=== PATIENT | female | born 1990 | race American Indian/Alaskan Native ===

== ENCOUNTER 2017-11-18 19:30 | Outpatient (CLI) | payer MEDICAID, OTHER ==
[2017-11-18 20:25] VITALS: BP 118/66
--- NOTE | 2017-11-18 20:55 | Event Note ---
Date: 11/18/17 Received call thru answering service lawson complained of excessive discharge and abdominal pain. States she feels like she has to have a BM but has clear mucus coming from her rectum and vagina. She was instructed to go to [facility] for evaluation. She presented to [facility] c/o right flank pain, cramps and clear discharge. On exam, negative pool,negative fern. Wet prep +BV. Cervix closed, FHT's 150's, no UC's. (R) moderarte hydronephrosis Bacterial vaginosis Allow home RTE W Thursday, make an appointment jose for care
[2017-11-18 21:21] LABS: Bacteria,Urine 1+ /HPF (Negative); Bilirubin,Urine NEG (Negative); Blood,Urine NEG (Negative); Color,Urine Yellow (Yellow); Mucus,Urine FEW /HPF; Protein,Urine <15 mg/dL mg/dL (Negative); Urobilinogen,Urine < 2.0 mg/dL (<2.0)
--- NOTE | 2017-11-18 21:54 | Discharge Summary ---
Providers - Providers Date of discharge: 11/18/17 Attending physician: KAROL WARREN Primary care physician: KAROL WARREN Hospitalization Condition at discharge: Good Disposition: DC-01 TO HOME OR SELFCARE Plan - Discharge Medications Prescriptions: metroNIDAZOLE [Metronidazole] 250 mg PO TID #21 tablet - Provider Discharge Summary Activity: other (No sex) Additional instructions: [] Smoking cessation referral if applicable(refer to patient education folder for contact #) [] Refer to [facility]'s [facility] Booklet Call your doctor immediately for: * Fever > 100.5 * Heavy vaginal bleeding ( >1 pad per hour) * Severe persistent headache * Shortness of breath * Reddened, hot, painful area to leg or breast * Drainage or odor from incision. * Keep incision clean and dry at all times and follow doctor's instructions regarding bathing/showering call [facility] tomorrow to make an appointment for care - Follow up plan Follow up: LIZETT MEEK MD [Staff Physician] - 7 Days (or jose) KAROL WARREN MD [Primary Care Provider] - (Call office tomorrow to make an appointment. ) Forms: Work/School Release Form
[2017-11-18] MEDS ORDERED: LACTATED RINGERS 1,000 ML IV ONE (22:00)
--- NOTE | 2017-11-18 22:45 | Ultrasound Report ---
FINAL REPORT PROCEDURE: US RENAL BILAT TECHNIQUE: Real-time sonography in multiple planes of the kidneys, ureters and urinary bladder was performed with image documentation. CPT 46077 HISTORY: [id number] weeksm, eval for kidney disease COMPARISON: No prior studies are available for comparison. FINDINGS: RIGHT kidney: There is moderate degree right hydronephrosis.. Length: 11 x 6 x 5 cm. LEFT kidney: Normal echotexture. No focal renal mass, calculus, or hydronephrosis. Length: 12 x 5 x 5cm. Bladder: Partially filled with normal outlines. IMPRESSION: Moderate degree right hydronephrosis. This may be physiologic secondary to . However right ureteral obstruction cannot be excluded..
== END 2017-11-18 22:00 | disposition home or self-care (01) ==
LOC: TRG 19:30
PROVIDERS: ATTEND Obstetrics & Gynecology
DX: O47.02 False labor before 37 completed weeks of gestation, second trimester (principal); Z3A.21 21 weeks gestation of pregnancy
CPT/HCPCS: 76770; 81001

== ENCOUNTER 2017-12-29 20:54 | Outpatient (CLI) | payer BC, MEDICAID, OTHER ==
[2017-12-29 21:11] VITALS: BP 120/73
[2017-12-29] MEDS ORDERED: LACTATED RINGERS 1,000 ML IV ONE (22:15)
[2017-12-29] MEDS ORDERED: ZOFRAN IV ONE (22:16)
[2017-12-29 22:54] LABS: Bacteria,Urine 1+ /HPF (Negative); Bilirubin,Urine NEG (Negative); Blood,Urine NEG (Negative); Color,Urine Yellow (Yellow); Mucus,Urine 3+ /HPF; Urobilinogen,Urine < 2.0 mg/dL (<2.0)
== END 2017-12-30 00:17 | disposition home or self-care (01) ==
LOC: TRG 20:54
PROVIDERS: ATTEND Obstetrics & Gynecology
DX: O47.02 False labor before 37 completed weeks of gestation, second trimester (principal); Z3A.27 27 weeks gestation of pregnancy
CPT/HCPCS: 59025; 81001; 96360; J2405; J7120

== ENCOUNTER 2018-03-03 16:33 | Outpatient (CLI) | payer MEDICAID ==
[2018-03-03] MEDS ORDERED: LACTATED RINGERS 500 ML IV ONE (16:51)
[2018-03-03 17:09] LABS: Hematocrit 32.7 % (30.3-42.9); Mean Corpuscular HGB Conc 34 % (30-34); Mean Corpuscular Hemoglobin 28 pg (28-32); Mean Corpuscular Volume 83 fl (79-97); Platelet Count 252 K/mm3 (140-440); Red Blood Count 3.97 M/mm3 (3.65-5.03); Red Cell Distribution Width 13.3 % (13.2-15.2)
[2018-03-03 17:34] LABS: Alanine Aminotransferase 8 units/L (7-56); Uric Acid 3.2 mg/dL (3.5-7.6)
[2018-03-03 18:02] LABS: Bilirubin,Urine NEG (Negative); Blood,Urine NEG (Negative); Color,Urine Yellow (Yellow); Mucus,Urine FEW /HPF; Protein,Urine <15 mg/dL mg/dL (Negative); Urobilinogen,Urine < 2.0 mg/dL (<2.0)
[2018-03-03 18:04] LABS: RBC,Urine < 1.0 /HPF (0.0-6.0)
[2018-03-03 19:04] VITALS: BP 125/77
[2018-03-03] MEDS ORDERED: TYLENOL PO ONE (19:24)
[2018-03-03] MEDS ORDERED: TYLENOL ONE (19:28)
== END 2018-03-03 20:00 | disposition home or self-care (01) ==
LOC: TRG 16:33
PROVIDERS: ATTEND Obstetrics & Gynecology
DX: O47.03 False labor before 37 completed weeks of gestation, third trimester (principal); Z3A.36 36 weeks gestation of pregnancy
CPT/HCPCS: 36415; 59025; 81001; 82565; 83615; 84450; 84460; 84550; 85027; 96360; J7120

== ENCOUNTER 2018-03-06 00:37 | Outpatient (CLI) | payer MEDICAID ==
[2018-03-06 00:54] VITALS: BP 114/68
[2018-03-06] MEDS ORDERED: LACTATED RINGERS 1,000 ML ONE (02:02)
--- NOTE | 2018-03-06 03:11 | Ultrasound Report ---
FINAL REPORT EXAM: US OB LIMITED HISTORY: well being TECHNIQUE: Real-time sonography was performed of the gravid uterus for amniotic fluid index and images are submitted for interpretation. PRIORS: None. FINDINGS: There is a single fetus in the uterus in a cephalic presentation. The placenta is posterior. The amniotic fluid index is normal at 13.3 cm. The heart is beating at a rate of 150 beats per minute. IMPRESSION: Normal amniotic fluid index
[2018-03-06 03:23] LABS: Amorphous Crystals,Urine 1+; Bacteria,Urine 1+ /HPF (Negative); Bilirubin,Urine NEG (Negative); Blood,Urine NEG (Negative); Color,Urine Yellow (Yellow); Mucus,Urine FEW /HPF; Protein,Urine <15 mg/dL mg/dL (Negative); Urobilinogen,Urine < 2.0 mg/dL (<2.0)
--- NOTE | 2018-03-06 03:25 | Ultrasound Report ---
FINAL REPORT EXAM: US OB BPP WO NON-STRESS HISTORY: well being TECHNIQUE: Real-time sonography was performed of the gravid uterus for biophysical profile and images are submitted for interpretation. PRIORS: None. FINDINGS: Biophysical profile: Breathin Movement: 2 Tone: 2 Fluid volume: 2 IMPRESSION: Normal biophysical profile, 01/20
== END 2018-03-06 03:43 | disposition home or self-care (01) ==
LOC: TRG 00:37
PROVIDERS: ATTEND Obstetrics & Gynecology
DX: O47.03 False labor before 37 completed weeks of gestation, third trimester (principal); Z3A.36 36 weeks gestation of pregnancy
CPT/HCPCS: 59025; 76815; 76819; 81001; 96360; J7120

== ENCOUNTER 2018-03-11 18:32 | Outpatient (CLI) | payer MEDICAID ==
[2018-03-11 22:11] VITALS: BP 114/71
[2018-03-12] MEDS ORDERED: VISTARIL PO ONE (00:27)
[2018-03-12] MEDS ORDERED: LACTATED RINGERS 1,000 ML ONE (00:50)
== END 2018-03-12 00:40 | disposition home or self-care (01) ==
LOC: TRG 18:32
PROVIDERS: ATTEND Obstetrics & Gynecology
DX: O47.03 False labor before 37 completed weeks of gestation, third trimester (principal); Z3A.37 37 weeks gestation of pregnancy
CPT/HCPCS: 59025; J7120; Q0177

== ENCOUNTER 2018-03-15 00:31 | Outpatient (CLI) | payer MEDICAID ==
[2018-03-15 01:00] VITALS: BP 111/72
== END 2018-03-15 02:22 | disposition home or self-care (01) ==
LOC: TRG 00:31
PROVIDERS: ATTEND Obstetrics & Gynecology
DX: O47.1 False labor at or after 37 completed weeks of gestation (principal); Z3A.38 38 weeks gestation of pregnancy
CPT/HCPCS: 59025

== ENCOUNTER 2018-03-18 18:40 | Inpatient (IN) | payer MEDICAID ==
[2018-03-18] MEDS ORDERED: MORPHINE IM ONE (21:21)
[2018-03-18] MEDS ORDERED: MINERAL OIL PO PRN (21:37)
[2018-03-18] MEDS ORDERED: XYLOCAINE 2% INFILTRATI ONE (21:37)
[2018-03-18] MEDS ORDERED: ZOFRAN IV PRN (21:37)
[2018-03-18] MEDS ORDERED: BRETHINE SUB-Q PRN (21:37)
[2018-03-18] MEDS ORDERED: LACTATED RINGERS 2,000 ML ONE (21:43)
--- NOTE | 2018-03-18 21:48 | History and Physical Report ---
History of Present Illness Date of examination: 03/18/18 (active labor) History of present illness: EDC Confirmation: 03/26/2018 Gestational Age: 9 6/7 weeks Past History : 3 Term Births: 2 Premature Births: 0 Living Children: 2 Para: 2 Aborta: 0 Elect. Ab: 0 Spont. 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 Infection History Hx of STD: none Varicella/Chicken Pox Status: Previous Disease Genetic History Congenital Heart Defect: Mom: no Dad: no Ish Disease: Mom: no Dad: no Thalassemia Mom: no Dad: no Neural Tube Defect Mom: no Dad: no Down's Syndrome Mom: no Dad: no Tal-Sachs Mom: no Dad: no Sickle Cell Disease/Trait Mom: no Dad: no Hemophilia Mom: no Dad: no Muscular Dystrophy Mom: no Dad: no Cystic Fibrosis Mom: no Dad: no Jeanette Chorea Mom: no Dad: no Mental Retardation Mom: no Dad: no Fragile X Mom: no Dad: no Other Genetic/Chromosomal Disorder Mom: no Dad: no Child w/other defect Mom: no Dad: no Enviromental Exposures Xray Exposure: no Medication, drug, or alcohol use since LMP: no Chemical/Other Exposure: no Exposure to Cat Liter: no Hx of Parvovirus (Fifth Disease): no Occupational Exposure to Children: none FALSECurrent Allergies: No known allergies Past History - Obstetrical History Expected Date of Delivery: 03/26/18 Actual Gestation: 39 Week(s) 0 Day(s) : 3 Para: 2 Hx # Term Pregnancies: 2 Number of Living Children: 2 Medications and Allergies Allergies Allergy/AdvReac Type Severity Reaction Status Date / Time No Known Allergies Allergy Verified 09/06/15 13:32 Home Medications Medication Instructions Recorded Confirmed Last Taken Type No Known Home Medications [No 03/11/18 03/11/18 Unknown History Reported Home Medications] Active Meds: Active Medications Ephedrine Sulfate (Ephedrine Sulfate) 10 mg IV Q2M PRN PRN Reason: Hypotension Fentanyl (Sublimaze) 100 mcg IV Q2H PRN PRN Reason: Labor Pain Lactated Ringer's (Lactated Ringers) 1,000 mls @ 125 mls/hr IV DIRECT STEPHEN Oxytocin/Sodium Chloride (Pitocin/Ns 20 Unit/1000ml Drip) 20 units in 1,000 mls @ 125 mls/hr IV DIRECT STEPHEN Oxytocin/Sodium Chloride (Pitocin/Ns 30 Unit/500ml) 30 units in 500 mls @ 4 mls /hr IV Q30MIN STEPHEN; Protocol Lidocaine (Xylocaine 2%) 20 ml INFILTRATI ONCE ONE Stop: 03/18/18 21:38 Mineral Oil (Mineral Oil) 30 ml PO QHS PRN PRN Reason: Constipation Ondansetron HCl (Zofran) 4 mg IV Q8H PRN PRN Reason: Nausea And Vomiting Terbutaline Sulfate (Brethine) 0.25 mg SUB-Q ONCE PRN PRN Reason: Hyperstimulation/Hypertonicity - Vital Signs Vital signs: Vital Signs Pulse BP 86 119/79 03/18/18 19:09 03/18/18 19:09 Temp Pulse Resp BP Pulse Ox 84 114/70 03/18/18 19:24 03/18/18 19:24 - Physical Exam Breasts: Positive: deferred Cardiovascular: Regular rate, Normal S1, Normal S2 Lungs: Positive: Normal air movement Abdomen: Positive: normal appearance, soft, normal bowel sounds. Negative: distention, tenderness Genitourinary (Female): Positive: normal external genitalia Vulva: both: normal Vagina: Positive: normal moisture. Negative: discharge Cervix: Negative: lesion, discharge Uterus: Positive: normal size, normal contour Adnexa: both: normal Anus/Rectum: Positive: normal perianal skin, heme negative. Negative: rectal mass, hemorrhoids Extremities: Positive: normal Deep Tendon Reflex Grade: Normal +2 - Obstetrical FHR: category 1 Uterine Contraction Monitor Mode: External Cervical Dilatation: 5 (BBOW) Cervical Effacement Percentage: 90 station: -2 Uterine Contraction Pattern: Regular Uterine Tone Measurement Phase: Resting Uterine Contraction Intensity: Moderate Results Result Diagrams: 03/18/18 19:30 All other labs normal. Strep Gp B KELLIE Negative HBsAg Screen Negative Negative *1 RPR Non Reactive Non Reactive *2 Rubella Antibodies, IgG [L] 0.90 index Immune >0.99 *3 A second sample should be collected and tested no less than 2-4 weeks. Non-immune <0.90 Equivocal 0.90 - 0.99 Immune >0.99 ABO Grouping O *4 Rh Factor Positive *5 Please note: Prior records for this patient's ABO / Rh type are not available for additional verification. Antibody Screen Negative Negative *6 WBC 5.2 x10E3/uL 3.4-10.8 *7 RBC 4.51 x10E6/uL 3.77-5.28 *8 Hemoglobin 12.1 g/dL 11.1-15.9 *9 Hematocrit 36.1 % 34.0-46.6 *10 MCV 80 fL 79-97 *11 MCH 26.8 pg 26.6-33.0 *12 MCHC 33.5 g/dL 31.5-35.7 *13 RDW 14.4 % 12.3-15.4 *14 Platelets 323 x10E3/uL 150-379 *15 Neutrophils 60 % Not Estab. *16 Lymphs 32 % Not Estab. *17 Monocytes 6 % Not Estab. *18 Eos 2 % Not Estab. *19 Basos 0 % Not Estab. *20 ! Immature Cells <No Reported Value> *21 Neutrophils (Absolute) 3.1 x10E3/uL 1.4-7.0 *22 Lymphs (Absolute) 1.6 x10E3/uL 0.7-3.1 *23 Monocytes(Absolute) 0.3 x10E3/uL 0.1-0.9 *24 Eos (Absolute) 0.1 x10E3/uL 0.0-0.4 *25 Baso (Absolute) 0.0 x10E3/uL 0.0-0.2 *26 ! Immature Granulocytes 0 % Not Estab. *27 ! Immature Grans (Abs) 0.0 x10E3/uL 0.0-0.1 *28 ! NRBC <No Reported Value> *29 Hematology Comments: <No Reported Value> *30 Tests: (2) Panel 260939 ([id number]) HIV Screen 4th Generation wRfx Non Reactive Non Reactive *31 Tests: (3) HCV Ab w/Rflx to Verification ([id number]) ! HCV Ab <0.1 s/co ratio 0.0-0.9 *32 Tests: (4) Comment: (342003) ! Comment: SPRCS *33 Non reactive HCV antibody screen is consistent with no HCV infection, unless recent infection is suspected or other evidence exists to indicate HCV infection. Tests: (5) Urine Culture, Routine (552050) Urine Culture, Routine Final report *34 Tests: (6) Result ([id number]) ! Result 1 No growth *35 Assessment and Plan 28yo @ 38 weeks in active labor GBS negative Orders in EMR Anticipate delivery
[2018-03-18] MEDS ORDERED: PITOCin/NS 30 UNIT/500ML 30 UNITS/500 ML BAG IV SCH (22:00)
[2018-03-18] MEDS ORDERED: LACTATED RINGERS 1,000 ML IV SCH (22:00)
[2018-03-18] MEDS ORDERED: PITOCin/NS 20 UNIT/1000ML DRIP 20 UNITS/1,000 ML BAG IV SCH (22:00)
[2018-03-18 22:01] LABS: Hematocrit 33.6 % (30.3-42.9); Hemoglobin 11.7 gm/dl (10.1-14.3); Mean Corpuscular HGB Conc 35 % (30-34); Mean Corpuscular Hemoglobin 31 pg (28-32); Mean Corpuscular Volume 89 fl (79-97); Platelet Count 254 K/mm3 (140-440); Red Blood Count 3.77 M/mm3 (3.65-5.03); Red Cell Distribution Width 13.6 % (13.2-15.2)
[2018-03-18] MEDS: SUBLIMAZE IV PRN (22:05)
[2018-03-18] MEDS ORDERED: NARCAN 2 MG/2 ML IV PRN (23:29)
--- NOTE | 2018-03-18 23:31 | Anesthesia Consultation ---
Anesthesia Consult and Med Hx Date of service: 03/18/18 - Airway Anesthetic Teeth Evaluation: Good ROM Head & Neck: Adequate Mental/Hyoid Distance: Adequate Mallampati Class: Class II Intubation Access Assessment: Possibly Difficult - Pulmonary Exam CTA: Yes - Cardiac Exam Cardiac Exam: RRR - Pre-Operative Health Status ASA Pre-Surgery Classification: ASA2 Proposed Anesthetic Plan: Epidural, Spinal - Pulmonary Hx Smoking: No Hx Asthma: No - Cardiovascular System Hx Hypertension: No - Central Nervous System Hx Neuromuscular Disorder: No Hx Seizures: No CVA: No - Gastrointestinal Hx Gastroesophageal Reflux Disease: Yes - Endocrine Hx Renal Disease: No Hx Hypothyroidism: No Hx Hyperthyroidism: No - Other Systems Hx Obesity: Yes
[2018-03-18] MEDS ORDERED: PEPCID IV ONE (23:33)
[2018-03-18] MEDS ORDERED: fentaNYL-BUPIV 2 MCG/ML-0.125% 200 MCG/100 ML BAG EPIDURAL SCH (23:45)
[2018-03-19] MEDS: SUBLIMAZE IV PRN (00:50)
--- NOTE | 2018-03-19 01:16 | Procedure Note ---
OB Delivery Note - Delivery Date of Delivery: 03/19/18 Vocational Rehabilitation Consultant: DILIP POTTS Estimated blood loss: 300cc - Vaginal Delivery presentation: vertex Delivery position: OA Delivery monitor: external uterine, internal FHT Route of delivery: Delivery placenta: spontaneous Delivery cord: 3 umbilical vessels Episiotomy: none Delivery laceration: none Anesthesia: epidural Delivery comments: live born female over intact perineum Baby to mom's abdomen skin to skin Cord blood obtained Placenta and membrane delivered complete and intact, 3 vessel cord. Pit IVFs 8/9, EBL 300, Wgt 6-13 Mom and baby remain LDR stable - Infant A at 1 minute: 8 at 5 minutes: 9 Gender: Female (wgt 6-13)
[2018-03-19] MEDS ORDERED: LANSINOH TP PRN (01:19)
[2018-03-19] MEDS ORDERED: TUCKS PAD TP PRN (01:19)
[2018-03-19] MEDS ORDERED: BENADRYL PO PRN (01:19)
[2018-03-19] MEDS ORDERED: MILK OF MAGNESIA PO PRN (01:19)
[2018-03-19] MEDS ORDERED: TYLENOL PO PRN (01:19)
[2018-03-19] MEDS ORDERED: DULCOLAX PR PRN (01:19)
[2018-03-19] MEDS ORDERED: PHENERGAN PO PRN (01:19)
[2018-03-19] MEDS: MOTRIN PO SCH ×3 (01:56→16:03)
[2018-03-19] MEDS ORDERED: SODIUM CHLORIDE FLUSH SYRINGE 10 ML IV NR (02:00)
[2018-03-19] MEDS: NORCO 5/325 PO PRN ×3 (03:11→21:17)
[2018-03-19] MEDS ORDERED: PEPCID IV SCH (10:00)
[2018-03-19] MEDS ORDERED: PRENATAL VITAMIN PO SCH (10:00)
[2018-03-19] MEDS: COLACE PO SCH ×2 (10:17→21:17)
[2018-03-19 14:19] LABS: Hematocrit 30.9 % (30.3-42.9); Hemoglobin 11.2 gm/dl (10.1-14.3)
[2018-03-20] MEDS: NORCO 5/325 PO PRN (04:34)
[2018-03-20] MEDS: MOTRIN PO SCH (04:35)
[2018-03-20] MEDS ORDERED: M-M-R II VACCINE SUB-Q ONE (06:00)
[2018-03-20] MEDS ORDERED: BOOSTRIX IM ONE (06:00)
--- NOTE | 2018-03-20 08:34 | Discharge Summary ---
Providers - Providers Date of Admission: 03/18/18 21:46 Date of discharge: 03/20/18 (pt agrees with d/c) Attending physician: KAROL WARREN Primary care physician: KAROL WARREN Hospitalization Reason for admission: active labor Delivery: Episiotomy: none Laceration: none Incision: normal Other procedures: none complications: none Discharge diagnosis: IUP at term delivered baby: female Hospital course: uncomplicated vaginal delivery Pt feeding NB C/O pain in left hip Discussed relieving factors Exp that poss related to pushing Pt voiced understanding VSS FF below umb Lochia small perineum intact Varicosity still enlarged ice pack applied. H&H 05/14 stable Doing well s/p vag del. P: d/c today with instructions RTO 4 weeks Condition at discharge: Good Disposition: DC-01 TO HOME OR SELFCARE - Discharge Diagnoses (1) Spontaneous vaginal delivery Status: Acute Comment: RTO 4weeks PP care Plan - Provider Discharge Summary Activity: routine Diet: routine Instructions: routine Additional instructions: [] Smoking cessation referral if applicable(refer to patient education folder for contact #) [] Refer to [facility]'s [facility] Booklet Call your doctor immediately for: * Fever > 100.5 * Heavy vaginal bleeding ( >1 pad per hour) * Severe persistent headache * Shortness of breath * Reddened, hot, painful area to leg or breast * Drainage or odor from incision. * Keep incision clean and dry at all times and follow doctor's instructions regarding bathing/showering - Follow up plan Follow up: KAROL WARREN MD [Primary Care Provider] - 04/19/18 (Congratulations! Please call [phone] to schedule your visit in 4 weeks. Motrin for cramping and pain, Tylenol for headaches. Call with any concerns.)
[2018-03-20 13:41] VITALS: BP 114/68
== END 2018-03-20 14:00 | disposition home or self-care (01) | DRG 775 ==
LOC: TRG 18:40 → LD 21:46 → OB 03-19 02:49
PROVIDERS: ADMIT Obstetrics & Gynecology; ATTEND Obstetrics & Gynecology
PROC: 10E0XZZ Delivery of Products of Conception, External Approach (ICD-10-PCS; principal; 2018-03-19)
PROC: 3E0234Z Introduction of Serum, Toxoid and Vaccine into Muscle, Percutaneous Approach (ICD-10-PCS; 2018-03-20)
PROC: 3E0R3BZ Introduction of Anesthetic Agent into Spinal Canal, Percutaneous Approach (ICD-10-PCS; 2018-03-20)
PROC: 00HU33Z Insertion of Infusion Device into Spinal Canal, Percutaneous Approach (ICD-10-PCS; 2018-03-20)
DX: O99.214 Obesity complicating childbirth (principal); O99.62 Diseases of the digestive system complicating childbirth; Z3A.38 38 weeks gestation of pregnancy; Z37.0 Single live birth; Z23 Encounter for immunization; E66.9 Obesity, unspecified; K21.9 Gastro-esophageal reflux disease without esophagitis; Z68.39 Body mass index [BMI] 39.0-39.9, adult
CPT/HCPCS: 36415; 85014; 85018; 85027; 86850; 86900; 86901; 90471; 90715; J2310; J2405; J2590; J3010; J7120

== ENCOUNTER 2019-03-31 19:22 | Outpatient (CLI) | payer MEDICAID ==
[2019-03-31 21:16] VITALS: BP 124/74
[2019-03-31] MEDS ORDERED: LACTATED RINGERS 1,000 ML IV ONE (21:24)
[2019-03-31] MEDS ORDERED: LACTATED RINGERS ONE (21:30)
[2019-03-31 21:44] LABS: Bilirubin,Urine NEG (Negative); Blood,Urine NEG (Negative); Color,Urine Yellow (Yellow); Mucus,Urine FEW /HPF; Protein,Urine <15 mg/dL mg/dL (Negative); Urobilinogen,Urine < 2.0 mg/dL (<2.0)
[2019-04-01 15:06] LABS: Bacteria,Urine 3+ /HPF (Negative)
== END 2019-03-31 22:40 | disposition home or self-care (01) ==
LOC: TRG 19:22
PROVIDERS: ATTEND Obstetrics & Gynecology
DX: O62.9 Abnormality of forces of labor, unspecified (principal); O26.893 Other specified pregnancy related conditions, third trimester; R10.30 Lower abdominal pain, unspecified; Z3A.31 31 weeks gestation of pregnancy
CPT/HCPCS: 59025; 81001; 87086; 96360; J7120

== ENCOUNTER 2019-05-07 15:51 | Outpatient (CLI) | payer MEDICAID ==
[2019-05-07 16:28] VITALS: BP 109/69
== END 2019-05-07 16:55 | disposition home or self-care (01) ==
LOC: TRG 15:51
PROVIDERS: ATTEND Obstetrics & Gynecology
DX: O47.03 False labor before 37 completed weeks of gestation, third trimester (principal); Z3A.36 36 weeks gestation of pregnancy
CPT/HCPCS: 59025

== ENCOUNTER 2019-05-16 23:21 | Inpatient (IN) | payer MEDICAID ==
[2019-05-17] MEDS ORDERED: OXYTOCIN 20 UNIT/1000ML DRIP 40,000 MILLIUNITS/2,000 ML BAG IV ONE (01:10)
[2019-05-17] MEDS ORDERED: LACTATED RINGERS 1,000 ML ONE (01:10)
[2019-05-17 01:11] LABS: Hematocrit 33.1 % (30.3-42.9); Hemoglobin 11.4 gm/dl (10.1-14.3); Mean Corpuscular HGB Conc 35 % (30-34); Mean Corpuscular Volume 83 fl (79-97); Platelet Count 239 K/mm3 (140-440); Red Blood Count 3.98 M/mm3 (3.65-5.03); Red Cell Distribution Width 13.1 % (13.2-15.2)
[2019-05-17] MEDS: LACTATED RINGERS 1,000 ML IV SCH ×2 (02:05→07:33)
--- NOTE | 2019-05-17 03:41 | History and Physical Report ---
History of Present Illness Date of examination: 05/17/19 (Pt SROM at 37 wks) Date of admission: 05/17/19 00:22 Chief complaint: Pt states that SROM reports clear fluid. History of present illness: EDC Confirmation: 06/02/2019 Gestational Age: 24 weeks Past History : 4 Living Children: 2 Mult. Births: 0 Prev : 0 Prev. attempt? 0 # 3 Comments: unexpected at 2 months Past Medical History: Migraines Past Surgical History: Reviewed history from 05/26/2011 and no changes required: negative Family History Summary: Father (biol.) - Has Family History Colon Cancer - Entered On: 02/10/2019 Social History: Patient is single Smoking History: Patient has never smoked. 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 Infection History Hx of STD: none HIV Risk Eval: low risk Hepatitis B Risk Eval: low risk Personal hx. of genital herpes: no Partner hx. of genital herpes: no Rash, Viral, or Febrile illness since last LMP? no Varicella/Chicken Pox Status: Previous Disease TB Risk: no Genetic History Congenital Heart Defect: Mom: no Dad: no Ish Disease: Mom: no Dad: no Thalassemia Mom: no Dad: no Neural Tube Defect Mom: no Dad: no Down's Syndrome Mom: no Dad: no Tal-Sachs Mom: no Dad: no Sickle Cell Disease/Trait Mom: no Dad: no Hemophilia Mom: no Dad: no Muscular Dystrophy Mom: no Dad: no Cystic Fibrosis Mom: no Dad: no Jeanette Chorea Mom: no Dad: no Mental Retardation Mom: no Dad: no Fragile X Mom: no Dad: no Other Genetic/Chromosomal Disorder Mom: no Dad: no Child w/other defect Mom: no Dad: no Enviromental Exposures Xray Exposure: no Medication, drug, or alcohol use since LMP: no Chemical/Other Exposure: no Exposure to Cat Liter: no Hx of Parvovirus (Fifth Disease): no Occupational Exposure to Children: none Active Medications (reviewed today): PLUS 27-1 MG ORAL TABLET ( VIT-FE FUMARATE-FA) 1 po Current Allergies: No known allergies Past History Past Medical History: migraines Past Surgical History: no surgical history 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 Family/Genetic History: cancer Social history: no significant social history - Obstetrical History Expected Date of Delivery: 06/02/19 Actual Gestation: 37 Week(s) 5 Day(s) : 4 Para: 3 Hx # Term Pregnancies: 3 (Baby # 3 passed at 2 months old) Number of Pregnancies: 0 Spontaneous Abortions: 0 Induced : 0 Number of Living Children: 2 Medications and Allergies Allergies Allergy/AdvReac Type Severity Reaction Status Date / Time No Known Allergies Allergy Verified 09/06/15 13:32 Home Medications Medication Instructions Recorded Confirmed Last Taken Type No Known Home Medications [No 03/11/18 05/17/19 Unknown History Reported Home Medications] Active Meds: Active Medications Lactated Ringer's (Lactated Ringers) 1,000 mls @ 125 mls/hr IV DIRECT STEPHEN Last Admin: 05/17/19 02:05 Dose: 125 mls/hr Documented by: - Vital Signs Vital signs: Vital Signs Pulse BP 107 H 135/88 05/16/19 23:34 05/16/19 23:34 Temp Pulse Resp BP Pulse Ox 97.8 F 93 H 12 133/84 98 05/17/19 00:45 05/17/19 01:10 05/17/19 00:45 05/17/19 01:10 05/17/19 00:45 - Physical Exam Breasts: Positive: deferred Cardiovascular: Regular rate Lungs: Positive: Normal air movement Abdomen: Positive: normal appearance Genitourinary (Female): Positive: normal external genitalia Vulva: both: normal Vagina: Positive: normal moisture Uterus: Positive: enlarged (37 wks ) Anus/Rectum: Positive: normal perianal skin Extremities: Positive: normal Deep Tendon Reflex Grade: Normal +2 - Obstetrical FHR: category 1 Uterine Contraction Monitor Mode: External Uterine Contraction Pattern: Irregular Uterine Tone Measurement Phase: Resting Uterine Contraction Intensity: Mild Results Result Diagrams: 05/17/19 00:06 Abnormal lab results 05/17/19 Range/Units 00:06 MCHC 35 H (30-34) % RDW 13.1 L (13.2-15.2) % All other labs normal. GBS Negative HBsAg Screen Negative Negative *1 RPR Non Reactive Non Reactive *2 Rubella Antibodies, IgG [L] <0.90 index Immune >0.99 *3 Non-immune <0.90 Equivocal 0.90 - 0.99 Immune >0.99 ABO Grouping O *4 Rh Factor Positive *5 Please note: Prior records for this patient's ABO / Rh type are not available for additional verification. Antibody Screen Negative Negative *6 WBC 6.3 x10E3/uL 3.4-10.8 *7 RBC 4.00 x10E6/uL 3.77-5.28 *8 Hemoglobin 11.4 g/dL 11.1-15.9 *9 Hematocrit 34.8 % 34.0-46.6 *10 MCV 87 fL 79-97 *11 MCH 28.5 pg 26.6-33.0 *12 MCHC 32.8 g/dL 31.5-35.7 *13 RDW 14.3 % 12.3-15.4 *14 Platelets 258 x10E3/uL 150-450 *15 Neutrophils 63 % Not Estab. *16 Lymphs 25 % Not Estab. *17 Monocytes 9 % Not Estab. *18 Eos 2 % Not Estab. *19 Basos 0 % Not Estab. *20 ! Immature Cells <No Reported Value> *21 Neutrophils (Absolute) 4.0 x10E3/uL 1.4-7.0 *22 Lymphs (Absolute) 1.6 x10E3/uL 0.7-3.1 *23 Monocytes(Absolute) 0.6 x10E3/uL 0.1-0.9 *24 Eos (Absolute) 0.1 x10E3/uL 0.0-0.4 *25 Baso (Absolute) 0.0 x10E3/uL 0.0-0.2 *26 ! Immature Granulocytes 1 % Not Estab. *27 ! Immature Grans (Abs) 0.0 x10E3/uL 0.0-0.1 *28 ! NRBC <No Reported Value> *29 Hematology Comments: <No Reported Value> *30 Tests: (2) Panel 522234 ([id number]) HIV Screen 4th Generation wRfx Non Reactive Non Reactive *31 Tests: (3) Gest. Diabetes 1-Hr Screen (813321) ! Gestational Diabetes Screen 97 mg/dL 65-139 *32 According to ADA, a glucose threshold of >139 mg/dL after 50-gram load identifies approximately 80% of women with gestational diabetes mellitus, while the sensitivity is further increased to approximately 90% by a threshold of >129 mg/dL. Tests: (4) HCV Ab w/Rflx to Verification ([id number]) ! HCV Ab <0.1 s/co ratio 0.0-0.9 *33 Tests: (5) Comment: ([id number]) ! Comment: SPRCS *34 Non reactive HCV antibody screen is consistent with no HCV infection, unless recent infection is suspected or other evidence exists to indicate HCV infection. Tests: (6) Urine Culture, Routine ([id number]) Urine Culture, Routine Final report *35 Tests: (7) Result ([id number]) ! Result 1 No growth *36 Assessment and Plan A: 29 y.o at 37.5 weeks PROM, and + Trich P: Treatment of Trich with Flagyl 1gm IV X one Start Pitocin after infusion of Flagyl Place Internal monitors Anticipate - Patient Problems (1) Trichomoniasis of vagina Onset Date: ~05/17/19 Current Visit: Yes Status: Acute Plan to address problem: Flagyl 1gm IV X once ordered (2) PROM (premature rupture of membranes) Onset Date: ~05/16/19 Current Visit: Yes Status: Acute Qualifiers: PROM onset of labor timing: unspecified duration between rupture of membranes and onset of labor PROM gestational age: -third trimester Qualified Code(s): O42.913 - premature rupture of membranes, unspecified as to length of time between rupture and onset of labor, third trimester Plan to address problem: Start pitocin to augment labor
[2019-05-17] MEDS ORDERED: ePHEDrine SULFATE 50 MG/1 ML INJ IV PRN ×2 (03:45→06:38)
[2019-05-17] MEDS ORDERED: ONDANSETRON 4 MG/2 ML INJ IV PRN (03:45)
[2019-05-17] MEDS ORDERED: MINERAL OIL 30 ML ORAL LIQD PO PRN (03:45)
[2019-05-17] MEDS ORDERED: TERBUTALINE 1 MG/1 ML INJ SUB-Q PRN (03:45)
[2019-05-17] MEDS ORDERED: LIDOCAINE (2%) 20 MG/1 ML VIAL 20 ML MDV INFILTRATI ONE (03:45)
[2019-05-17] MEDS ORDERED: fentaNYL 100 MCG/2 ML INJ IV PRN (03:45)
[2019-05-17] MEDS ORDERED: metroNIDAZOLE/NS 1000 MG-200ML 1,000 MG in EMPTY BAG 0 ML IV ONE (03:49)
[2019-05-17] MEDS ORDERED: OXYTOCIN 20 UNIT/1000ML DRIP 20 UNITS/1,000 ML BAG IV SCH (04:00)
[2019-05-17] MEDS: metroNIDAZOLE/NS 500 MG/100 ML 500 MG/100 ML BAG IV SCH ×2 (04:15→04:32)
[2019-05-17] MEDS: OXYTOCIN DRIP 30 UNITS/500 ML BAG IV SCH ×4 (05:13→09:29)
[2019-05-17] MEDS ORDERED: FAMOTIDINE 20 MG/2 ML INJ IV ONE (05:15)
[2019-05-17] MEDS ORDERED: hydrOXYzine HCL 100 MG/2 ML INJ IM ONE (05:38)
[2019-05-17] MEDS ORDERED: NALOXONE 2 MG/2 ML INJ IV PRN (06:38)
--- NOTE | 2019-05-17 06:41 | Anesthesia Consultation ---
Anesthesia Consult and Med Hx Date of service: 05/17/19 - Airway Anesthetic Teeth Evaluation: Good ROM Head & Neck: Adequate Mental/Hyoid Distance: Adequate Mallampati Class: Class III Intubation Access Assessment: Probably Good - Pulmonary Exam CTA: Yes - Cardiac Exam Cardiac Exam: RRR - Pre-Operative Health Status ASA Pre-Surgery Classification: ASA2 Proposed Anesthetic Plan: Epidural - Pulmonary Hx Smoking: No Hx Asthma: No Hx Respiratory Symptoms: No SOB: No COPD: No Home Oxygen Therapy: No Hx Pneumonia: No Hx Sleep Apnea: No - Cardiovascular System Hx Hypertension: No Hx Coronary Artery Disease: No Hx Heart Attack/AMI: No Hx Angina: No Hx Percutaneous Transluminal Coronary Angioplasty (PTCA): No Hx Cardia Arrhythmia: No Hx Pacemaker: No Hx Internal Defibrillator: No Hx Valvular Heart Disease: No Hx Heart Murmur: No Hx Peripheral Vascular Disease: No - Central Nervous System Hx Neuromuscular Disorder: No Hx Seizures: No CVA: No Hx Psychiatric Problems: No - Gastrointestinal Hx Ulcer: No Hx Gastroesophageal Reflux Disease: Yes - Endocrine Hx Renal Disease: No Hx End Stage Renal Disease: No Hx Cirrhosis: No Hx Liver Disease: No Hx Insulin Dependent Diabetes: No Hx Non-Insulin Dependent Diabetes: No Hx Thyroid Disease: No Hx Hypothyroidism: No Hx Hyperthyroidism: No - Hematic Hx Anemia: No Hx Sickle Cell Disease: No - Other Systems Hx Alcohol Use: No Hx Substance Use: No Hx Cancer: No Hx Obesity: Yes (bmi 41)
--- NOTE | 2019-05-17 06:46 | Progress Note ---
Assessment and Plan A: 29 y.o. @ 37 wks PROM, trich + treated, labor now with epidural, internal monitors placed P: Continue with pitocin per protocol Anticipate - Patient Problems (1) Trichomoniasis of vagina Onset Date: ~05/17/19 Current Visit: Yes Status: Acute (2) PROM (premature rupture of membranes) Onset Date: ~05/16/19 Current Visit: Yes Status: Acute Qualifiers: PROM onset of labor timing: unspecified duration between rupture of membranes and onset of labor PROM gestational age: -third trimester Qualified Code(s): O42.913 - premature rupture of membranes, unspecified as to length of time between rupture and onset of labor, third trimester Subjective - Subjective Date of service: 05/17/19 (Pt comfortable with epidural) Principal diagnosis: IUP @ 37 PROM with + trich Interval history: EDC Confirmation: 06/02/2019 Gestational Age: 24 weeks Past History : 4 Living Children: 2 Mult. Births: 0 Prev : 0 Prev. attempt? 0 # 3 Comments: unexpected at 2 months Past Medical History: Migraines Past Surgical History: Reviewed history from 05/26/2011 and no changes required: negative Family History Summary: Father (biol.) - Has Family History Colon Cancer - Entered On: 02/10/2019 Social History: Patient is single Smoking History: Patient has never smoked. 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 Infection History Hx of STD: none HIV Risk Eval: low risk Hepatitis B Risk Eval: low risk Personal hx. of genital herpes: no Partner hx. of genital herpes: no Rash, Viral, or Febrile illness since last LMP? no Varicella/Chicken Pox Status: Previous Disease TB Risk: no Genetic History Congenital Heart Defect: Mom: no Dad: no Ish Disease: Mom: no Dad: no Thalassemia Mom: no Dad: no Neural Tube Defect Mom: no Dad: no Down's Syndrome Mom: no Dad: no Tal-Sachs Mom: no Dad: no Sickle Cell Disease/Trait Mom: no Dad: no Hemophilia Mom: no Dad: no Muscular Dystrophy Mom: no Dad: no Cystic Fibrosis Mom: no Dad: no [place] Chorea Mom: no Dad: no Mental Retardation Mom: no Dad: no Fragile X Mom: no Dad: no Other Genetic/Chromosomal Disorder Mom: no Dad: no Child w/other defect Mom: no Dad: no Enviromental Exposures Xray Exposure: no Medication, drug, or alcohol use since LMP: no Chemical/Other Exposure: no Exposure to Cat Liter: no Hx of Parvovirus (Fifth Disease): no Occupational Exposure to Children: none Active Medications (reviewed today): PLUS 27-1 MG ORAL TABLET ( VIT-FE FUMARATE-FA) 1 po Current Allergies: No known allergies Patient reports: movement normal Objective - Vital Signs Vital Signs: Vital Signs - 12hr 05/16/19 05/17/19 05/17/19 23:34 00:45 01:10 Temperature 97.8 F Pulse Rate 107 H 93 H Respiratory 12 Rate Blood Pressure 135/88 133/84 O2 Sat by Pulse 98 Oximetry 05/17/19 05/17/19 05/17/19 04:22 05:11 05:16 Temperature 98.3 F Pulse Rate 101 H 124 H Respiratory 12 Rate Blood Pressure O2 Sat by Pulse 98 99 Oximetry 05/17/19 05/17/19 05/17/19 05:21 05:26 05:31 Temperature Pulse Rate 107 H 109 H 95 H Respiratory Rate Blood Pressure O2 Sat by Pulse 98 97 98 Oximetry 05/17/19 05/17/19 05/17/19 05:36 05:41 05:46 Temperature Pulse Rate 92 H 95 H 96 H Respiratory Rate Blood Pressure O2 Sat by Pulse 98 98 99 Oximetry 05/17/19 05/17/19 05/17/19 05:51 05:56 06:01 Temperature Pulse Rate 85 85 98 H Respiratory Rate Blood Pressure O2 Sat by Pulse 98 98 99 Oximetry 05/17/19 05/17/19 05/17/19 06:06 06:07 06:11 Temperature Pulse Rate 100 H 102 H 105 H Respiratory Rate Blood Pressure 148/104 142/96 O2 Sat by Pulse 99 99 Oximetry 05/17/19 05/17/19 05/17/19 06:14 06:16 06:20 Temperature Pulse Rate 106 H 91 H 90 Respiratory Rate Blood Pressure 146/93 133/82 O2 Sat by Pulse 99 Oximetry 05/17/19 05/17/19 05/17/19 06:21 06:22 06:24 Temperature Pulse Rate 89 93 H 93 H Respiratory Rate Blood Pressure 128/78 134/87 O2 Sat by Pulse 99 Oximetry 05/17/19 05/17/19 05/17/19 06:26 06:28 06:30 Temperature Pulse Rate 116 H 75 Respiratory Rate Blood Pressure 127/66 125/74 106/62 O2 Sat by Pulse 99 Oximetry 05/17/19 05/17/19 05/17/19 06:31 06:32 06:34 Temperature Pulse Rate 85 72 73 Respiratory Rate Blood Pressure 99/58 90/55 O2 Sat by Pulse 100 Oximetry 05/17/19 05/17/19 05/17/19 06:36 06:37 06:40 Temperature Pulse Rate 83 76 79 Respiratory Rate Blood Pressure 99/56 99/57 101/57 O2 Sat by Pulse 100 Oximetry - Exam Breasts: deferred Cardiovascular: Regular rate Lungs: Normal air movement Vulva: both: normal FHR: category 1 Uterine Contraction Monitor Mode: Internal Cervical Dilatation: 3 (ISE, and IUPC placed) Cervical Effacement Percentage: 70 station: -2 Uterine Contraction Pattern: Regular Uterine Tone Measurement Phase: Resting Uterine Contraction Intensity: Moderate Extremities: normal Deep Tendon Reflex Grade: Normal +2 - Labs Labs: Abnormal Labs 05/17/19 00:06 MCHC 35 H RDW 13.1 L Laboratory Results - last 24 hr 05/17/19 05/17/19 05/17/19 00:06 00:06 00:06 WBC 6.9 RBC 3.98 Hgb 11.4 Hct 33.1 MCV 83 MCH 29 MCHC 35 H RDW 13.1 L Plt Count 239 Syphilis IgG Antibody Non-reactive Blood Type O POSITIVE Antibody Screen Negative
[2019-05-17] MEDS ORDERED: fentaNYL-BUPIV 2 MCG/ML-0.125% 200 MCG/100 ML BAG EPIDURAL SCH (07:00)
[2019-05-17] MEDS ORDERED: WITCH HAZEL/ GLYCERIN PAD TP PRN (13:32)
[2019-05-17] MEDS ORDERED: MAGNESIUM HYDROXIDE (MOM) ORAL LIQD UDC PO PRN (13:32)
[2019-05-17] MEDS ORDERED: PROMETHAZINE 25 MG TAB PO PRN (13:32)
[2019-05-17] MEDS ORDERED: diphenhydrAMINE 25 MG CAP PO PRN (13:32)
[2019-05-17] MEDS ORDERED: PROMETHAZINE 25 MG RECT SUPP PR PRN (13:32)
[2019-05-17] MEDS ORDERED: ACETAMINOPHEN 325 MG TAB PO PRN (13:32)
--- NOTE | 2019-05-17 13:46 | Procedure Note ---
OB Delivery Note - Delivery Date of Delivery: 05/17/19 (late entry Del @ 1003) Server Service Assistant: DILIP POTTS Estimated blood loss: 300cc - Vaginal Delivery presentation: vertex Delivery position: OA Intrapartum events: other(please specify) (trich tx during labor; prev loss of NB @ 2mos of age) Delivery induction: none Delivery augmentation: pitocin Delivery monitor: internal FHT, internal uterine Route of delivery: Delivery placenta: spontaneous Delivery cord: 3 umbilical vessels Episiotomy: none Delivery laceration: none Anesthesia: epidural Delivery comments: Called urgently to LDR for eminent delivery live born female over intact perineum Baby skin to skin mom's abdomen DONN present. Cord blood obtained Placenta and membrane delivered complete and intact, 3 vessel cord, Pit IVFs. 8/9, EBL 300, Wgt 6-10 Mom and baby remain LDR stable. Due to pt's previous NB loss will consult Mental Health to begin and action plan for depression/anxiety. This month is one year the baby @ 2 months of age. - Infant A at 1 minute: 8 at 5 minutes: 9 Infant Gender: Female (wgt 6-10)
[2019-05-17] MEDS: LANOLIN/ZINC/DIMETHICONE (LANSINOH) 7 GM TP PRN (13:56)
[2019-05-17] MEDS ORDERED: IBUPROFEN 800 MG TAB PO SCH (14:00)
[2019-05-17] MEDS ORDERED: IBUPROFEN 600 MG TAB PO SCH (14:00)
[2019-05-17] MEDS: IBUPROFEN 800 MG TAB PO PRN (20:24)
[2019-05-17] MEDS: DOCUSATE SODIUM 100 MG CAP PO SCH (21:42)
[2019-05-17] MEDS ORDERED: ACETAMINOPHEN 325 MG TAB PO ONE (23:30)
[2019-05-18 01:10] LABS: Hematocrit 30.7 % (30.3-42.9); Hemoglobin 10.6 gm/dl (10.1-14.3)
[2019-05-18] MEDS: IBUPROFEN 800 MG TAB PO PRN ×3 (02:16→19:32)
--- NOTE | 2019-05-18 07:44 | Progress Note ---
Assessment and Plan A: 29 y.o. s/p SNVD at 2200 on 05/16/2019, with one episode of saturating one pad through out the night P: Watch bleeding throughout the day. Pad counts Encouraged ambulation Continue with normal care. - Patient Problems (1) Trichomoniasis of vagina Onset Date: ~05/17/19 Current Visit: Yes Status: Acute (2) PROM (premature rupture of membranes) Onset Date: ~05/16/19 Current Visit: Yes Status: Acute Qualifiers: PROM onset of labor timing: unspecified duration between rupture of membranes and onset of labor PROM gestational age: -third trimester Qualified Code(s): O42.913 - premature rupture of membranes, unspecified as to length of time between rupture and onset of labor, third trimester Subjective - Subjective Date of service: 05/18/19 (Pt doing well at this time) Principal diagnosis: IUP @ 37 PROM with + trich Interval history: EDC Confirmation: 06/02/2019 Gestational Age: 24 weeks Past History : 4 Living Children: 2 Mult. Births: 0 Prev : 0 Prev. attempt? 0 # 3 Comments: unexpected at 2 months Past Medical History: Migraines Past Surgical History: Reviewed history from 05/26/2011 and no changes required: negative Family History Summary: Father (biol.) - Has Family History Colon Cancer - Entered On: 02/10/2019 Social History: Patient is single Smoking History: Patient has never smoked. 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 Infection History Hx of STD: none HIV Risk Eval: low risk Hepatitis B Risk Eval: low risk Personal hx. of genital herpes: no Partner hx. of genital herpes: no Rash, Viral, or Febrile illness since last LMP? no Varicella/Chicken Pox Status: Previous Disease TB Risk: no Genetic History Congenital Heart Defect: Mom: no Dad: no Ish Disease: Mom: no Dad: no Thalassemia Mom: no Dad: no Neural Tube Defect Mom: no Dad: no Down's Syndrome Mom: no Dad: no Tal-Sachs Mom: no Dad: no Sickle Cell Disease/Trait Mom: no Dad: no Hemophilia Mom: no Dad: no Muscular Dystrophy Mom: no Dad: no Cystic Fibrosis Mom: no Dad: no [place] Chorea Mom: no Dad: no Mental Retardation Mom: no Dad: no Fragile X Mom: no Dad: no Other Genetic/Chromosomal Disorder Mom: no Dad: no Child w/other defect Mom: no Dad: no Enviromental Exposures Xray Exposure: no Medication, drug, or alcohol use since LMP: no Chemical/Other Exposure: no Exposure to Cat Liter: no Hx of Parvovirus (Fifth Disease): no Occupational Exposure to Children: none Active Medications (reviewed today): PLUS 27-1 MG ORAL TABLET ( VIT-FE FUMARATE-FA) 1 po Current Allergies: No known allergies Patient reports: appetite normal, voiding normally, pain well controlled, ambulating normally (Pt has strong desire to be d/c home this morning.), other (States that she is having no pain, is walking around in the room and voiding okay.) [place]: doing well Objective - Vital Signs Latest vital signs: Vital Signs Temp Pulse Resp BP BP Pulse Ox 05/17/19 23:38 98.3 F 74 20 111/69 95 05/17/19 17:43 98.2 F 77 18 135/89 96 05/17/19 13:15 97.9 F 89 16 120/77 98 05/17/19 12:28 77 100 05/17/19 12:23 80 100 05/17/19 12:20 73 106/71 05/17/19 12:18 83 100 05/17/19 12:13 71 100 05/17/19 12:09 74 109/69 05/17/19 12:08 73 99 05/17/19 11:44 82 139/73 05/17/19 11:38 68 116/69 05/17/19 11:30 77 151/91 05/17/19 11:14 83 120/72 05/17/19 11:09 32 L 69 L 05/17/19 11:08 87 97 05/17/19 11:03 73 99 05/17/19 10:59 77 118/74 05/17/19 10:58 80 97 05/17/19 10:53 89 98 05/17/19 10:48 81 98 05/17/19 10:44 86 125/75 05/17/19 10:43 89 98 05/17/19 10:38 87 98 05/17/19 10:33 89 97 05/17/19 10:29 89 126/71 05/17/19 10:28 91 H 97 05/17/19 10:23 97 H 97 05/17/19 10:20 50 L 93 05/17/19 10:18 95 H 98 05/17/19 10:13 87 05/17/19 10:09 65 L 05/17/19 10:01 124 H 99 05/17/19 09:56 117 H 98 05/17/19 09:51 115 H 99 05/17/19 09:46 102 H 99 05/17/19 09:41 104 H 98 05/17/19 09:36 104 H 100 05/17/19 09:31 84 98 05/17/19 09:26 82 98 05/17/19 09:21 79 98 05/17/19 09:19 83 114/60 05/17/19 09:16 76 99 05/17/19 09:11 82 98 05/17/19 09:06 94 H 104/59 99 05/17/19 09:02 85 94 05/17/19 09:01 86 97 05/17/19 08:56 82 97 05/17/19 08:51 80 105/53 99 05/17/19 08:46 74 98 05/17/19 08:41 86 98 05/17/19 08:36 88 99 05/17/19 08:35 79 96/53 05/17/19 08:31 109 H 98 05/17/19 08:26 85 99 05/17/19 08:21 89 127/79 98 05/17/19 08:16 91 H 99 05/17/19 08:11 95 H 97 05/17/19 08:06 91 H 98 05/17/19 08:05 85 115/65 05/17/19 08:01 82 98 05/17/19 07:56 74 98 05/17/19 07:51 82 98 05/17/19 07:50 81 124/71 05/17/19 07:46 76 98 05/17/19 07:41 86 99 Intake and Output 05/17/19 05/18/19 05/18/19 22:59 06:59 14:59 Intake Total 1080 240 Output Total 300 Balance 780 240 Intake: Oral 360 240 Intake, Free Water 720 Output: Urine 300 Void 300 Other: Total, Intake Amount 240 240 Total, Output Amount 300 # Voids Void 1 1 - Exam Breasts: Present: deferred Cardiovascular: Present: Regular rate Lungs: Present: Normal air movement Abdomen: Present: normal appearance, soft Vulva: both: normal Uterus: Present: normal, firm, fundal height below umbilicus Extremities: Present: normal Deep Tendon Reflex Grade: Normal +2 Incision: Present: normal Comments: Moderate rubra noted. - Labs Labs: H/H 10.6/30.7
[2019-05-18] MEDS: DOCUSATE SODIUM 100 MG CAP PO SCH ×2 (09:06→21:13)
[2019-05-18] MEDS: PRENATAL VIT27-FE FUMARATE-FOLIC ACID VIT TAB PO SCH (09:06)
[2019-05-18] MEDS ORDERED: TETANUS,DIPH,PERTUSS(ACELL) VACCINE 0.5 ML SYRINGE IM ONE (13:32)
[2019-05-18] MEDS ORDERED: MEASLES, MUMPS & RUBELLA 12,500 UNIT/0.5 ML VACCINE SUB-Q ONE (13:32)
[2019-05-19] MEDS: IBUPROFEN 800 MG TAB PO PRN ×2 (01:17→14:15)
[2019-05-19] MEDS ORDERED: TETANUS,DIPH,PERTUSS(ACELL) VACCINE 0.5 ML SYRINGE IM ONE (06:00)
--- NOTE | 2019-05-19 08:53 | Discharge Summary ---
Providers - Providers Date of Admission: 05/17/19 00:22 Date of discharge: 05/19/19 Attending physician: KB HDEZ 05/17/19 13:36 Consult to Mental Health [CONS] Routine Reason For Exam: previous delivery [address] consult to:: timothy Notified:: mental health Phone number called:: [phone] Was contact made?: Yes If yes, spoke with:: Yessi Primary care physician: KB HDEZ Hospitalization Reason for admission: SROM at 37wks Condition: Good Pertinent studies: H/H 04/13 decreased d/t blood loss with delivery. VVSAF. Procedures: Uncomplicated Hospital course: SROM at 37wks. Uncomplicated and PP course. Disposition: TO HOME OR SELFCARE - Discharge Diagnoses (1) (normal spontaneous vaginal delivery) Status: Acute Core Measure Documentation - Palliative Care Palliative Care/ Comfort Measures: Not Applicable - Core Measures Any of the following diagnoses?: none Exam - Constitutional Vitals: Temp Pulse Resp BP Pulse Ox 98.1 F 69 18 110/71 97 05/19/19 00:15 05/19/19 05:40 05/19/19 01:17 05/19/19 05:40 05/19/19 05:40 General appearance: Present: no acute distress, well-nourished - EENT Eyes: Present: PERRL ENT: hearing intact, clear oral mucosa - Neck Neck: Present: supple, normal ROM - Respiratory Respiratory effort: normal Respiratory: bilateral: CTA - Cardiovascular Heart Sounds: Present: S1 & S2. Absent: rub, click - Extremities Extremities: pulses symmetrical, No edema Peripheral Pulses: within normal limits - Abdominal General gastrointestinal: Present: soft, non-tender, non-distended, normal bowel sounds Female genitourinary: Present: normal - Integumentary Integumentary: Present: clear, warm, dry - Musculoskeletal Musculoskeletal: gait normal, strength equal bilaterally - Psychiatric Psychiatric: appropriate mood/affect, intact judgment & insight - Neurologic Neurologic: CNII-XII intact, moves all extremities Plan Activity: no restrictions Weight Bearing Status: Full Weight Bearing Diet: regular Follow up with: KB HDEZ MD [Primary Care Provider] - 06/16/19 (Congratulations! Please call the office [phone] to schedule your follow-up visit in 4 weeks. Please call with any questions or concerns. ) Prescriptions: Ibuprofen [Motrin 800 MG tab] 800 mg PO Q8HR PRN #30 tablet PRN Reason: Pain
[2019-05-19] MEDS: PRENATAL VIT27-FE FUMARATE-FOLIC ACID VIT TAB PO SCH (14:16)
[2019-05-19] MEDS: DOCUSATE SODIUM 100 MG CAP PO SCH (14:16)
[2019-05-19] MEDS: LANOLIN/ZINC/DIMETHICONE (LANSINOH) 7 GM TP PRN (14:17)
[2019-05-19 18:32] VITALS: BP 140/88
== END 2019-05-19 19:45 | disposition home or self-care (01) | DRG 774 ==
LOC: TRG 23:21 → LD 05-17 00:22 → OB 05-17 13:24
PROVIDERS: ADMIT Obstetrics & Gynecology; ATTEND Obstetrics & Gynecology
PROC: 10E0XZZ Delivery of Products of Conception, External Approach (ICD-10-PCS; principal; 2019-05-17)
PROC: 10H07YZ Insertion of Other Device into Products of Conception, Via Natural or Artificial Opening (ICD-10-PCS; 2019-05-17)
PROC: 3E0R3BZ Introduction of Anesthetic Agent into Spinal Canal, Percutaneous Approach (ICD-10-PCS; 2019-05-17)
PROC: 00HU33Z Insertion of Infusion Device into Spinal Canal, Percutaneous Approach (ICD-10-PCS; 2019-05-17)
PROC: 3E0134Z Introduction of Serum, Toxoid and Vaccine into Subcutaneous Tissue, Percutaneous Approach (ICD-10-PCS; 2019-05-18)
PROC: 3E0234Z Introduction of Serum, Toxoid and Vaccine into Muscle, Percutaneous Approach (ICD-10-PCS; 2019-05-19)
DX: O42.92 Full-term premature rupture of membranes, unspecified as to length of time between rupture and onset of labor (principal); O98.32 Other infections with a predominantly sexual mode of transmission complicating childbirth; Z3A.37 37 weeks gestation of pregnancy; Z37.0 Single live birth; O99.354 Diseases of the nervous system complicating childbirth; O99.62 Diseases of the digestive system complicating childbirth; O99.214 Obesity complicating childbirth; O99.344 Other mental disorders complicating childbirth; A59.01 Trichomonal vulvovaginitis; G43.909 Migraine, unspecified, not intractable, without status migrainosus; K21.9 Gastro-esophageal reflux disease without esophagitis; F32.9 Major depressive disorder, single episode, unspecified; F41.9 Anxiety disorder, unspecified; Z80.0 Family history of malignant neoplasm of digestive organs; Z23 Encounter for immunization
CPT/HCPCS: 36415; 85014; 85018; 85027; 85461; 86592; 86850; 86900; 86901; 88307; 90471; 90715; G0378; A6250; J2590; J3410; J7120